=== PATIENT | male | born 1995 | race Caucasian/White ===

== ENCOUNTER 2016-07-27 15:53 | Emergency (ER) | payer SELFPAY ==
--- NOTE | 2016-07-27 17:43 | ER Document Report ---
ED Medical Screen (RME) - General Chief Complaint: Hemorrhoids Stated Complaint: LOWER BODY PAIN Notes: Patient says he thinks he has a hemorrhoid and wants it fixed. He says it's been present for over a couple of months and there is no difference today than it has been, he just wants something done about it. Says it occasionally bleeds. No fevers. When asked if this could've been caused by any kind of an injury and he said maybe. TRAVEL OUTSIDE OF THE [place] IN LAST 30 DAYS: No - Related Data Allergies/Adverse Reactions: erythromycin base [Erythromycin Base] Allergy (Intermediate, Verified 09/08/14 14:59) n/v sesame oil Allergy (Verified 07/27/16 16:28) Past Medical History - Past Medical History Cardiac Medical History: Denies: Hx Coronary Artery Disease, Hx Heart Attack, Hx Hypertension Pulmonary Medical History: Denies: Hx Asthma, Hx Bronchitis, Hx COPD, Hx Pneumonia Neurological Medical History: Denies: Hx Cerebrovascular Accident, Hx Seizures Renal/ Medical History: Denies: Hx Peritoneal Dialysis Musculoskeltal Medical History: Denies Hx Arthritis - Immunizations Hx Diphtheria, Pertussis, Tetanus Vaccination: Yes Physical Exam - Vital signs Vitals: Temp Pulse Resp BP Pulse Ox 98.8 F 99 16 122/80 98 07/27/16 16:30 07/27/16 16:30 07/27/16 16:30 07/27/16 16:30 07/27/16 16:30 Course - Vital Signs Vital signs: Temp Pulse Resp BP Pulse Ox 98.8 F 99 16 122/80 98 07/27/16 16:30 07/27/16 16:30 07/27/16 16:30 07/27/16 16:30 07/27/16 16:30
--- NOTE | 2016-07-27 18:52 | ER Document Report ---
HPI - HPI Patient complains to provider of: RECTAL DISCOMFORT, RIGHT TESTICLE PAIN/ SWELLING Onset: Other - 2 1/2 MONTHS Onset/Duration: Intermittent Quality of pain: Dull Severity: Mild Pain Level: 2 Context: Patient states he has been having rectal discomfort and testicular pain intermittently for the last 2-1/2 months. Denies rectal bleeding, does have occasional hard stools. States he has had some swelling to the right testicle. States he was tested for STDs on June 21 which were negative. Associated Symptoms: None Exacerbated by: Denies Relieved by: Denies Similar symptoms previously: Yes Recently seen / treated by doctor: Yes - ROS ROS below otherwise negative: Yes Systems Reviewed and Negative: Yes All other systems reviewed and negative - CONSTITUTIONAL Constitutional: DENIES: Fever - EENT EENT: DENIES: Congestion - NEURO Neurology: DENIES: Headache - CARDIOVASCULAR Cardiovascular: DENIES: Chest pain - RESPIRATORY Respiratory: DENIES: Trouble Breathing - GASTROINTESTINAL Gastrointestinal: REPORTS: Constipation. DENIES: Abdominal Pain Notes: Rectal discomfort - URINARY Urinary: DENIES: Dysuria Notes: Right testicular pain and swelling - MUSCULOSKELETAL Musculoskeletal: DENIES: Extremity pain - DERM Skin Color: Normal Skin Problems: None Past Medical History - General Information source: Patient - Social History Smoking Status: Never Smoker Frequency of alcohol use: Social Drug Abuse: None Lives with: Family Family History: Reviewed & Not Pertinent Patient has suicidal ideation: No Patient has homicidal ideation: No Pulmonary Medical History: Reports: Hx Asthma Psychiatric Medical History: Reports: Hx Anxiety, Hx Depression Past Surgical History: Reports: Hx Oral Surgery - Immunizations Hx Diphtheria, Pertussis, Tetanus Vaccination: Yes Vertical Provider Document - CONSTITUTIONAL Agree With Documented VS: Yes Exam Limitations: No Limitations General Appearance: WD/WN, No Apparent Distress - INFECTION CONTROL TRAVEL OUTSIDE OF THE [place] IN LAST 30 DAYS: No - HEENT HEENT: Atraumatic, Normocephalic - RESPIRATORY Respiratory: Breath Sounds Normal, No Respiratory Distress O2 Sat by Pulse Oximetry: 98 - CARDIOVASCULAR Cardiovascular: Regular Rate, Regular Rhythm - GI/ABDOMEN Gastrointestinal: Abdomen Soft, Abdomen Non-Tender, Normal Bowel Sounds Notes: No external hemorrhoids seen on exam. Rectum tender on rectal exam. Hard stool in rectum. Standby was Judie. - REPRODUCTIVE Notes: Testicles nontender, small amount of nontender swelling noted above right testes. - MUSCULOSKELETAL/EXTREMETIES Musculoskeletal/Extremeties: MASUNNY, FROM - NEURO Level of Consciousness: Awake, Alert, Appropriate - DERM Integumentary: Warm, Dry Course - Re-evaluation Re-evalutation: 07/27/16 20:27 Urinalysis and ultrasound results discussed with patient. - Vital Signs Vital signs: Temp Pulse Resp BP Pulse Ox 98.8 F 99 16 122/80 98 07/27/16 16:30 07/27/16 16:30 07/27/16 16:30 07/27/16 16:30 07/27/16 16:30 Discharge - Discharge Clinical Impression: Rectal discomfort Condition: Good Disposition: HOME, SELF-CARE Additional Instructions: proctofoam as prescribed follow up with your PCP or gastroenterology for further evaluation of rectal discomfort and intermittent testicular pain, ultrasound and urinalysis tonight were normal. return as needed Prescriptions: Hydrocortisone/Pramoxine [Proctofoam-Hc Foam] 10 gm RC BID #1 foam Referrals: CHAPIS FINCH MD [ACTIVE STAFF] - Follow up as needed SHILO ALMEIDA MD [ACTIVE STAFF] - Follow up as needed
[2016-07-27 19:03] LABS: APPEARANCE,URINE CLEAR; BILIRUBIN,URINE NEGATIVE (NEGATIVE); GLUCOSE, URINE NEGATIVE (NEGATIVE); KETONES,URINE NEGATIVE (NEGATIVE); LEUKOCYTE ESTERASE,URINE NEGATIVE (NEGATIVE); NITRITE,URINE NEGATIVE (NEGATIVE); PROTEIN,URINE NEGATIVE (NEGATIVE); URINE SPECIFIC GRAVITY 1.017; UROBILINOGEN,URINE NEGATIVE mg/dL (<2.0)
[2016-07-27 20:06] VITALS: BP 121/74
== END 2016-07-27 20:07 | disposition home or self-care (01) ==
LOC: ER 15:53
DX: K62.89 Other specified diseases of anus and rectum (principal); N50.811 Right testicular pain; N50.89 Other specified disorders of the male genital organs
CPT/HCPCS: 76870; 81001; 93976; 99283